=== PATIENT | female | born 1980 | race Caucasian/White ===

== ENCOUNTER 2017-09-05 15:35 | Observation (INO) | payer OTHER ==
--- NOTE | 2017-09-05 16:01 | HP ---
DATE OF ADMISSION: 09/05/2017. HISTORY OF PRESENT ILLNESS: Ms. Yasemin Brennan is a 37-year-old, white female who is 35 weeks pregna nt and is admitted with symptoms of right renal colic for cystoscopy, right ureteroscopy, laser litho tripsy, and right ureteral stent placement. Ms. Yasemin Brennan is a known stone former and in September of 2013 she was 22 weeks and she had left renal colic and required left ureteroscopy, stone extraction, and stent placement. She did well afterwards. She is now 35 weeks . She presented to my office about two months ago with episodes of gross painless hematuria associated with mild left flank pain. There was no associated voiding symptoms a nd no urinary tract infection. She had bilateral renal ultrasound which showed mild bilateral caliectasis with bilateral renal calcu li, but no acute obstruction. Because of the recurrent episodes of painless hematuria and to rule out any bladder pathology, she bernstein d a cystoscopy in the office two weeks ago. The bladder looked normal without any suspicious lesions . She continued to be managed conservatively until today when she presented to the office with symptoms of right renal colic. No associated fever or chills. Her urine analysis showed +3 blood, was negat neil otherwise. She had a bilateral renal ultrasound in the office. The study showed moderate right hydroureteral ne phrosis with increased echogenicity of the right renal cortex. There were three calculi noted in the right kidney measuring between 5 and 8 mm in size. The left kidney showed no hydronephrosis and the re were two calculi measuring 4 and 8 mm by ultrasound. The previous stone removed on the patient was calcium phosphate in composition. She has been maintain ed on potassium citrate. PAST MEDICAL HISTORY AND SYSTEM REVIEW: She is in very good health. PAST SURGICAL HISTORY: She had a section for her first baby in 2013. MEDICATIONS: She is on vitamins and on fish oil. She is on no other chronic medications. ALLERGIES: She reports POSSIBLE REACTION TO PENICILLIN. PHYSICAL EXAMINATION GENERAL: She is a pale-looking, white female who is and in moderate pain. VITAL SIGNS: Blood pressure 100/60, pulse 86, temperature 97. LUNGS: Exam of the lungs is normal. HEART: Exam of the heart is normal. ABDOMEN: She has right CVA tenderness. She has a gravid uterus. IMPRESSION: 1. Recurrent episodes of gross hematuria and right renal colic secondary to right ureteral calculus. 2. Bilateral renal calculi. 3. 35 weeks gestation. PLAN: Cystoscopy, right ureteroscopy, possible laser lithotripsy, and right ureteral stent placement . I discussed the above plans with the patient. All her questions were answered. [id number]/[facility] #: [id number]
[2017-09-05 16:12] LABS: Hematocrit 32 % (35-47); Hemoglobin 10.9 g/dl (12.0-16.0); Mean Corpuscular HGB Conc 34 g/dl (31-36); Mean Corpuscular Hemoglobin 31 pg (27-31); Mean Corpuscular Volume 90 fL (80-97); Mean Platelet Volume 7.8 um3 (7.4-10.4); Platelet Count 165 10^3/ul (150-450); Red Blood Count 3.54 10^6/ul (4.0-5.4); Red Cell Distribution Width 14 % (10.5-15); White Blood Count 16.3 10^3/ul (3.5-10.8)
[2017-09-05] MEDS ORDERED: Morphine INJ* 4 MG/ML 1 ML CARPUJECT IV ONE (16:27)
[2017-09-05 16:35] LABS: EGFR Non-African American 131.3 (>60); Urine Appearance Clear; Urine Blood 2+ (Negative); Urine Color Yellow; Urine Ketones 2+ (Negative); Urine Protein 1+(30 mg/dL) (Negative); Urine Specific Gravity 1.017 (1.010-1.030); Urine Urobilinogen Negative (Negative)
[2017-09-05 17:04] LABS: ABS Basophils 0.1 10^3/ul (0-0.2); ABS Eosinophils 0.1 10^3/ul (0-0.6); ABS Lymphocytes 1.6 10^3/ul (1.0-4.8); ABS Monocytes 0.8 10^3/ul (0-0.8); ABS Neutrophils 13.8 10^3/ul (1.5-7.7); ABS Nucleated RBC 0 10^3/ul; Eosinophil % 0.5 % (0-6); Lymphocyte % 9.6 % (25-47); Nucleated Red Blood Cells % 0
[2017-09-05] MEDS ORDERED: Midazolam* 1 MG/ML 2 ML VIAL (2 MG) ONE (18:21)
[2017-09-05] MEDS ORDERED: fentaNYL* 50 MCG/ML 2 ML VIAL (100 MCG VIAL) ONE (18:21)
[2017-09-05] MEDS ORDERED: cefTRIAXone(*) 1 GM ADVAN/BAG ONE (18:29)
[2017-09-05] MEDS ORDERED: Ondansetron SYRINGE* 4 MG/2 ML SYRINGE (from 40mg/20ml vial) ONE (18:45)
[2017-09-05] MEDS ORDERED: Iohexol 180 (CONTRAST) 10 ML SDV IV ONE (18:56)
[2017-09-05] MEDS ORDERED: Lidocaine 2% PF * 5 ML VIAL ONE (19:06)
[2017-09-05] MEDS ORDERED: DiMENhydriNATE IV* 50 MG/ML VIAL ONE (19:06)
[2017-09-05] MEDS ORDERED: Chloroprocaine 2%* 20 ML VIAL ONE (19:06)
[2017-09-05] MEDS ORDERED: Dexamethasone IV* 4 MG/ML 1 ML (4 MG) ONE (19:06)
[2017-09-05 20:19] VITALS: BP 112/58
--- NOTE | 2017-09-05 20:43 | RAD ---
INDICATION: Right-sided stent COMPARISON: None FINDINGS: 8 seconds of fluoroscopy were provided for the urology department. Fluoroscopic spot imaging of the abdomen were obtained for operative control and show right ureteral stent placement in the dilated right renal collecting system . CPT II Codes: G9500 (fluoro time doc)
--- NOTE | 2017-09-06 06:51 | PN ---
L&D Outpatient: Visit - Reproductive Information Estimated Due Date: 10/08/17 Gestational Age: 35 Weeks and 3 Days : 2 Para: 1 - Reason for Visit Visit Reason: admitted by urology for kidney stones and urologic procedure. - Antepartal Records Antepartal Record: Reviewed, Uncomplicated - Patient History Patient History Significant: Yes Patient History Significant For: kidney stones L&D Outpatient: ROS - Review of Systems Constitutional: Uncomfortable CV Complaint: No Respiratory: Shortness of Breath: No Genitourinary: Dysuria, No Leaking Fluid Musculoskeletal: Back Pain Movement: Normal L&D Outpatient: Exam Vitals - Most Recent: Vital Signs: Temp Pulse Resp BP Pulse Ox 98.6 F 79 16 112/58 97 09/05/17 20:15 09/05/17 20:15 09/05/17 20:57 09/05/17 20:15 09/05/17 20:15 Lab Values - Entire Visit: Laboratory Tests 09/05/17 09/05/17 09/05/17 15:55 15:55 15:55 WBC 16.3 H RBC 3.54 L Hgb 10.9 L Hct 32 L MCV 90 MCH 31 MCHC 34 RDW 14 Plt Count 165 MPV 7.8 Neut % (Auto) 84.4 H Lymph % (Auto) 9.6 L [place] % (Auto) 4.9 Eos % (Auto) 0.5 Baso % (Auto) 0.6 Absolute Neuts (auto) 13.8 H Absolute Lymphs (auto) 1.6 Absolute Monos (auto) 0.8 Absolute Eos (auto) 0.1 Absolute Basos (auto) 0.1 Absolute Nucleated RBC 0 Nucleated RBC % 0 Sodium 135 L Potassium 3.6 Chloride 104 Carbon Dioxide 21 L Anion Gap 10 BUN 7 Creatinine 0.53 Est GFR ( Amer) 168.8 Est GFR (Non-Af Amer) 131.3 BUN/Creatinine Ratio 13.2 Glucose 75 Calcium 8.4 L Urine Color Yellow Urine Appearance Clear Urine pH 6.0 Ur Specific [place] 1.017 Urine Protein 1+(30 mg/dl) A Urine Ketones 2+ A Urine Blood 2+ A Urine Nitrate Negative Urine Bilirubin Negative Urine Urobilinogen Negative Ur Leukocyte Esterase Negative Urine WBC (Auto) Trace(0-5/hpf) Urine RBC (Auto) 3+(>10/hpf) A Ur Squamous Epith Cells Present A Urine Bacteria Absent Urine Glucose Negative Urine Ascorbic Acid * A - Abdominal Exam Abdomen Exam: Non-Tender - Membranes Membrane Status: Intact L&D Outpatient: EFM - External Monitor Findings Baseline Heart Rate: 140 External Monitor Findings: Accelerations Present, No Pattern of Variable or Late Decelerations, Variability Moderate, Baseline Stable External Monitor Findings Comment: irregular contractions L&D Outpatient: Asses/Plan Assessment: @35wks admitted from urology for management of kidneys stones. No obstetrical issues. - Discharge Diagnosis Discharge Diagnosis: Other - kidney stones Plan: Discharge Home in Stable Condition
--- NOTE | 2017-09-08 03:47 | OP ---
CC: [facility] * DATE OF OPERATION: 09/05/17 - ROOM #109 DATE OF : 84 SURGEON: Chris Prado MD ANESTHESIOLOGIST: Nasrin Barbour MD ANESTHESIA: Spinal. PRE-OP DIAGNOSES: 1. Right renal colic. 2. Right ureteral calculus. 3. 35 weeks' gestation. POST-OP DIAGNOSES: 1. Right renal colic. 2. Right ureteral calculus. 3. 35 weeks' gestation. OPERATIVE PROCEDURE: 1. Cystoscopy. 2. Right ureteroscopy and laser lithotripsy of right ureteral calculus (8 mm). 3. Right retrograde pyelography and placement of right ureteral stent (6-Swazi ). INDICATIONS: Ms. Yasemin Brennan is a 37-year-old white female who is 35 weeks' and who is a known stone former, and who has been followed in the office for the last two months because of recurrent episodes of painless gross hematuria. Renal ultrasound showed non obstructing bilateral renal calculi and mild bilateral caliectasis. Urine cultures were negative. Cystoscopy showed no bladder lesions. The patient was managed conservatively. She presented to the office today with symptoms of right renal colic and office renal ultrasound showed moderate to severe right hydroureteronephrosis. Because of the above history and findings, the patient is admitted for the above procedure. PATHOLOGY AT CYSTOSCOPY: The bladder mucosa looked somewhat hyperemic with prominent submucosal veins, consistent with her stage of with extrinsic pressure of her gravid uterus. The ureteral orifices looked normal. Upon introduction of the guidewire into the right orifice, there was a gush of concentrated urine but it did not look purulent. When the ureteral catheter was introduced into the renal pelvis, a total of 50 cc of concentrated urine was drained from her right collecting system. Upon right ureteroscopy, an 8-mm calculus was noted in the distal ureter. The calculus had the gross appearance of a calcium phosphate stone. Retrograde pyelography showed moderate right hydronephrosis. DESCRIPTION OF PROCEDURE: After successful spinal anesthesia, an x-ray apron was placed under the patient to protect the fetus. Only the right kidney and proximal right ureter were visualized in the fluoroscopy field. The patient was then placed in the lithotomy position and was prepped and draped for cystoscopy. Cystoscopy was performed. The bladder was carefully inspected and the above findings were noted. A flexible tip guidewire was then introduced into the right orifice and there was some initial resistance and then a gush of concentrated urine from the right orifice. An open-ended catheter was then fed on top of the guidewire and positioned in the area of the renal pelvis. The kidney was then decompressed by aspirating 50 cc of concentrated urine from the kidney. The guidewire was then replaced and the open-ended catheter was removed. A size 6.5 semi-rigid ureteroscope was then introduced inside the bladder. A flexible-tip basket was then introduced through the port of the ureteroscope and its flexible tip was introduced into the right ureteral orifice alongside the guidewire. That allowed atraumatic introduction of the ureteroscope into the right ureter. The calculus was identified. The basket was then deployed and the stone was engaged preventing its proximal migration. A size 550 micron laser fiber was then introduced through the other port of the ureteroscope and the stone was then broken with laser into multiple fragments. The fragments were then extracted and sent for stone analysis. The ureteroscopy was then performed all the way up into the proximal ureter and no residual stone fragments or other calculi were seen. The cystoscope was then reintroduced over the guidewire. Retrograde pyelography was performed. A size 6-Swazi stent was placed with the proximal end coiling in the renal pelvis and the distal end coiling inside the bladder. There was good drainage of contrast from the kidney and no extravasation. The patient tolerated the procedure well and left the operating room in good condition. The plan is to keep the patient overnight in the Labor and Delivery for observation and for monitoring the fetus. The plan is to discharge her home tomorrow on suppressive course of Keflex. The stent will be removed in the office in about 10 days. [id number]/[facility] #: [id number] [facility]AMPUSDesi
--- NOTE | 2017-09-10 14:06 | DS ---
Admit dx: kidney stones, Discharge dx: kidney stones, Procedure: urologic procedure with Dr. Prado Hospital course: pt admitted for urologic procedure to remove painful kidney stones. She is 35wks . No complications with the . Discharge disposition: to home. Has f/u in our office for her . Will f/u with Dr. Prado for further care of her kidney issues.
== END 2017-09-06 08:45 | disposition home or self-care (01) ==
LOC: MCHOB 15:38
PROVIDERS: ADMIT Obstetrics & Gynecology; ATTEND Obstetrics & Gynecology
PROC: 0TC68ZZ Extirpation of Matter from Right Ureter, Via Natural or Artificial Opening Endoscopic (ICD-10-PCS; 2017-09-05)
PROC: BT1DZZZ Fluoroscopy of Right Kidney, Ureter and Bladder (ICD-10-PCS; 2017-09-05)
PROC: 0TF68ZZ Fragmentation in Right Ureter, Via Natural or Artificial Opening Endoscopic (ICD-10-PCS; principal; 2017-09-05 18:30)
DX: N13.2 Hydronephrosis with renal and ureteral calculous obstruction (principal); O26.893 Other specified pregnancy related conditions, third trimester; Z3A.35 35 weeks gestation of pregnancy; O09.523 Supervision of elderly multigravida, third trimester; Z87.442 Personal history of urinary calculi
CPT/HCPCS: 36415; 74420; 80048; 81003; 81015; 82365; 85025; 87086; 88300; C1876; G0378; J0696; J1100; J1240; J2250; J2270; J2400; J2405; J3010

== ENCOUNTER 2017-10-02 22:08 | Inpatient (IN) | payer OTHER ==
[2017-10-02] MEDS ORDERED: Morphine INJ* 2 MG/ML 1 ML CARPUJECT IV PRN (23:23)
[2017-10-02] MEDS ORDERED: Morphine INJ* 4 MG/ML 1 ML CARPUJECT IV ONE ×2 (23:33→23:57)
[2017-10-02 23:36] LABS: Hematocrit 30 % (35-47); Hemoglobin 10.2 g/dl (12.0-16.0); Mean Corpuscular HGB Conc 34 g/dl (31-36); Mean Corpuscular Hemoglobin 30 pg (27-31); Mean Corpuscular Volume 90 fL (80-97); Platelet Count 137 10^3/ul (150-450); Red Blood Count 3.39 10^6/ul (4.00-5.40); Red Cell Distribution Width 14 % (10.5-15); White Blood Count 18.5 10^3/ul (3.5-10.8)
--- NOTE | 2017-10-02 23:48 | PN ---
L&D Outpatient: Visit - Reproductive Information Estimated Due Date: 10/08/17 Gestational Age: 39 Weeks and 2 Days : 2 Para: 1 - Reason for Visit Visit Reason: Pt presents today with left side severe pain. She has a long h/o kidney stones including during this . She began having more pain this am and was seen by Dr. Prado today. She says she passed one stone today but still has another. She thought she could manage the pain this afternoon but then it got much worse a few hours ago so she came in. She has had a prior CS but strongly hopes for a . She has not had that much to drink today and had one episode of vomiting before arriving here. - Antepartal Records Antepartal Record: Reviewed, Complicated by: - kidney stones, prior CS - Patient History Patient History Significant: No L&D Outpatient: ROS - Review of Systems Constitutional: Uncomfortable CV Complaint: No Respiratory: Shortness of Breath: No Genitourinary: No Bleeding, No Leaking Fluid Musculoskeletal: Back Pain Movement: Normal L&D Outpatient: Exam Vitals - Most Recent: Vital Signs: Temp Pulse Resp BP Pulse Ox 20 10/02/17 23:37 Lab Values - Entire Visit: Laboratory Tests 10/02/17 23:00 WBC 18.5 H RBC 3.39 L Hgb 10.2 L Hct 30 L MCV 90 MCH 30 MCHC 34 RDW 14 Plt Count 137 L MPV 8.0 - Ultrasound/Biophysical Profile Ultrasound Status: Not Done L&D Outpatient: EFM - External Monitor Findings Baseline Heart Rate: 135 External Monitor Findings: Accelerations Present, No Pattern of Variable or Late Decelerations, Variability Moderate, Baseline Stable L&D Outpatient: Asses/Plan Assessment: @39.1wks with kidney stones. Desires . Spoke with Dr. Roe & he said if she doesn't plan on a CS now then they would consider nephrostomy tube vs another stent. They will see her in the am to discuss this. If she had a CS then they would plan for a stent at the same time as the CS. Will manage pain overnight, give IVF and Rocephin per Dr. Roe. - Discharge Diagnosis Discharge Diagnosis: Other - kidney stones
[2017-10-02 23:55] LABS: ABS Basophils 0.1 10^3/ul (0-0.2); ABS Eosinophils 0.1 10^3/ul (0-0.6); ABS Lymphocytes 1.4 10^3/ul (1.0-4.8); ABS Monocytes 1.2 10^3/ul (0-0.8); ABS Neutrophils 15.6 10^3/ul (1.5-7.7); ABS Nucleated RBC 0 10^3/ul
[2017-10-02 23:59] LABS: Monocytes % 5 % (0-7)
[2017-10-03] MEDS ORDERED: Morphine INJ* 4 MG/ML 1 ML CARPUJECT IV ONE (00:01)
[2017-10-03] MEDS ORDERED: Promethazine INJ(RESTRICTED)* 25 MG/ML 1 ML VIAL IV PRN ×2 (00:18→00:41)
[2017-10-03] MEDS ORDERED: Promethazine INJ(RESTRICTED)* 25 MG/ML 1 ML VIAL ONE (00:22)
[2017-10-03] MEDS ORDERED: cefTRIAXone(*) 2 GM in NS 0.9% 100 ML* 100 ML IVPB ONE (00:29)
[2017-10-03] MEDS ORDERED: Morphine INJ* 10 MG/ML 1 ML CARPUJECT IV ONE (00:41)
[2017-10-03] MEDS ORDERED: HYDROmorphone INJ* 2 MG/ML CARPUJECT SYRINGE IV ONE ×2 (01:22→04:30)
[2017-10-03] MEDS ORDERED: HYDROmorphone INJ* 2 MG/ML CARPUJECT SYRINGE ONE ×2 (01:34→09:32)
--- NOTE | 2017-10-03 09:03 | CONS ---
CC: [facility] * GENITOURINARY CONSULTATION NOTE DATE OF CONSULT: 10/03/17 Patient is on Labor and Delivery. Mrs. Albright is a 37-year-old white female whom I have been following for several years because bilateral renal calculus disease. In September 2013, while she was 22 weeks , she developed left renal colic and required left ureteroscopy and stone extraction with stent placement. She was doing well until one month ago when she was 35 weeks , and she presented with symptoms of right renal colic secondary to an 8 mm distal Rt ureteral calculus. She underwent a right ureteroscopy, laser lithotripsy, and right ureteral stent placement. The stent was removed ten days later and she did fine. The stone analysis was calcium phosphate. Renal ultrasound at that time showed bilateral non-obstructing renal calculi. Monika was doing well well until yesterday when she presented to my office with recurrent episodes of left renal colic. She spontaneously passed a 5 mm calculus. The pain improved, then recurred. She had a renal ultrasound in my office yesterday afternoon which showed bilateral non-obstructing renal calculi measuring up to 8 mm each. She also had moderate bilateral hydronephrosis, and there was a 1 cm calculus noted at the left uteropelvic junction. There was also increased cortical echogenicity of both kidneys. Bilateral renal calculi, measuring up to 8 mm were noted in each kidney. While in my office yesterday afternoon, patient felt better and she was sent home and asked to call back if her pain recurred. In my office, her urinalysis was positive for microscopic hematuria, but showed no infection. Patient had had no fever or chills. She presented to Labor and Delivery around midnight with nausea and vomiting, and bilateral flank more pronounced on the Left. She was admitted to Labor and Delivery, and started on IV fluid and pain medication, and was given a dose of Ceftriaxone IV. Patient is 40 weeks and had a previous section. She had wanted to go for a , and she has been scheduled to have a in another week unless she goes into labor. PHYSICAL EXAMINATION On physical exam today, she looks pale and she is in a significant amount of pain and retching and vomiting. She is afebrile, and her vital signs are normal. She had bilateral flank tenderness more so on the left. IMPRESSION: A 1 cm calculus at the left ureteropelvic junction with recurrent episodes of left renal colic in a 37-year-old who is 40 weeks , had a previous , and scheduled to go for a in another week unless she goes into labor. Bilateral renal calculi Renal ultrasound was obtained this morning. It showed bilateral moderate to severe hydronephrosis, bilateral renal calculi, and a 1.2 cm calculus at the Left UPJ. I discussed Monika's condition with Dr Deal who is automotive fuel systems converter for OB. I had a long discussion with Monkia and her regarding the options of management. I recommended that we proceed today with the , followed by bilateral stents placement, possible bilateral ureteroscopies and laser lithotripsy. The other options include placing stents only versus placing a left percutaneous nephrostomy. She might still go into labor following the procedures, and she might well require a section. Considering the above factors, and after Monika discussed the options with her , she decided to proceed with the section today, follwed by bilateral stents insertions, and possible bilateral ureteroscopies. All their questions were answered. [id number]/[facility] #: [id number] [place]
--- NOTE | 2017-10-03 09:10 | HP ---
General Information - General Information Maternal Age: 37 Grav: 2 Para: 1 SAB: 0 IEA: 0 Estimated Due Date: 10/08/17 Determined By: LMP Gestational Age in Weeks and Days: 39 Weeks and 1 Days Maternal Blood Type and Rh: AB Positive - Results this Serology/RPR Result: Non-Reactive Rubella Result: Immune HBsAg Result: Negative HIV Result: Negative GBS Culture Result: Negative Past Medical History Delivery History: Hx C/Section, See Records Pertinent Past Medical History: See Records Pertinent Past Surgical History: See Records Pertinent Family History: See Records - Antepartal Records Antepartal Records: Reviewed, Complicated by: - Renal stones and pain Review of Systems Constitutional: Uncomfortable CV Complaint: No Respiratory: Shortness of Breath: No Gastrointestinal: Normal Bowel Movement Genitourinary: No Dysuria, No Bleeding, No Leaking Fluid Musculoskeletal: No Complaint Neurological: No Headache Movement: Normal - Comments Patient admitted with bilateral back pain localized to costovertebral angle and abdominal pain suprapubic and llq. Exam Allergies/Adverse Reactions: Allergies Penicillins Allergy (Verified 09/05/17 16:40) Unknown Reaction Details Vital Signs 10/02/17 10/03/17 10/03/17 23:37 00:05 04:05 Respiratory 20 18 16 Rate 10/03/17 06:11 Respiratory 16 Rate Lab Values - Entire Visit: Laboratory Tests 10/02/17 10/02/17 23:00 23:00 WBC 18.5 H RBC 3.39 L Hgb 10.2 L Hct 30 L MCV 90 MCH 30 MCHC 34 RDW 14 Plt Count 137 L MPV 8.0 Neut % (Auto) Not Reportable Lymph % (Auto) Not Reportable [place] % (Auto) Not Reportable Eos % (Auto) Not Reportable Baso % (Auto) Not Reportable Absolute Neuts (auto) 15.6 H Absolute Lymphs (auto) 1.4 Absolute Monos (auto) 1.2 H Absolute Eos (auto) 0.1 Absolute Basos (auto) 0.1 Absolute Nucleated RBC 0 Immature Gran % 17 H Neutrophils % 73 Band Neutrophils % 14 H Lymphocytes % 4 L Monocytes % 5 Eosinophils % 1 Basophils % 0 Metamyelocytes % 1 Myelocytes % 2 H Nucleated RBC % Not Reportable Abs Neuts (Manual) 13.5 H Abs Lymphs (Manual) 0.7 L Abs Monocytes (Manual) 0.9 H Absolute Eos (Manual) 0.2 Abs Basophils (Manual) 0 Normal RBC Morphology Normal Blood Type AB Positive Antibody Screen Negative - Measurements Height: 5 ft 4 in Weight: 171 lb Weight in lbs: 171 Body Mass Index (BMI): 29.3 Pre- Weight: 136 lb Weight Gained This : 35 lbs and 0 ozs - Exam Abdomen: No Upper Quadrant Pain Breast: Breast Exam Deferred CVA: CVA Tenderness - bilaterally Extremities: No Edema Heart: Normal Rhythm/Heart Sounds HEENT: No Significant Findings Lungs: Clear Bilaterally Rectal: Rectal Exam Deferred Reflexes: DTR 2+ Thyroid: No Thyromegaly - Abdominal Exam Abdomen Exam: Fundal Height Consistent with Dates - Ultrasound/Biophysical Profile Ultrasound Status: Radiology Department Full Exam - Full renal scan Targeted Exam Findings See L&D Outpatient Visit Provider Note for Findings: N/A Cervical Exam: Closed Effacement: Thick Station: 0 Presenting Part: Vertex Membrane Status: Intact Bleeding/Discharge: None EFM Findings - External Monitor Findings Baseline Heart Rate: 149 External Monitor Findings: Accelerations Present Contractions: Irregular, Mild Assessment/Plan - Reason for Visit Reason for Visit: at 39 weeks, prior section, acute back/abdominal pain secindary to renal stones not amenable to conservative treatment. Urology consulted. - Obstetrical Risk Factors Risk Factors Comment: Priro Section - Plan Plan Comment: Plan Ureteral stent placement followed by repeat Section.
[2017-10-03] MEDS ORDERED: HYDROmorphone INJ* 0.5 MG/0.5 ML SYRINGE IV SLOW PU PRN (09:27)
--- NOTE | 2017-10-03 09:40 | RAD ---
HISTORY: Renal stones, pt to have stent vs nephrostomy tube COMPARISONS: Pyelogram dated September 05, 2017, ultrasound dated October 17, 2010 TECHNIQUE: Multiple transverse and longitudinal ultrasound images were obtained of the kidneys using grayscale and color Doppler imaging. FINDINGS: RIGHT KIDNEY: The right kidney is normal in shape, size, contour, and echogenicity. There is moderate to severe pelvocaliectasis. The right kidney measures 13.1 x 7.6 x 7.6 cm. LEFT KIDNEY: The left kidney is normal in shape, size, contour, and echogenicity. There is moderate to severe pelvocaliectasis. There is a 1.3 x 0.8 cm UPJ calculus. The left kidney measures 14.3 x 7.4 x 6.7 cm. BLADDER: The bladder is not well visualized. AORTA AND IVC: No images are submitted of the vasculature. RETROPERITONEUM: Unremarkable. OTHER: None. IMPRESSION: 1. MODERATE TO SEVERE BILATERAL HYDRONEPHROSIS. 2. 1.3 CM CALCULUS OF THE LEFT UPJ.
[2017-10-03] MEDS ORDERED: HYDROmorphone INJ* 1 MG/ML CARPUJECT SYRINGE IV SLOW PU PRN (09:48)
[2017-10-03 10:24] LABS: EGFR Non-African American 31.2 (>60)
[2017-10-03] MEDS ORDERED: ceFOXitin 2 GM IVPREMIX* 2 GM/50 ML BAG IVPB ONE (10:48)
[2017-10-03] MEDS ORDERED: Iohexol 180 (CONTRAST) 10 ML SDV IV ONE (11:13)
[2017-10-03] MEDS ORDERED: Sodium Citrate/Citric Acid* 15 ML UDC ONE ×2 (12:11→12:44)
[2017-10-03] MEDS ORDERED: Morphine PF AMP (0.5MG/ML)* 5 MG/10 ML AMP ONE (12:20)
[2017-10-03] MEDS ORDERED: Bupivacaine 0.25% SDV* 30 ML ONE (13:03)
[2017-10-03] MEDS ORDERED: Bupivacaine 0.5% SDV PF* 30ML VIAL ONE (13:03)
[2017-10-03] MEDS ORDERED: OXYTOCIN* 10 UNITS/ML 1 ML VIAL ONE ×2 (13:04→13:36)
[2017-10-03] MEDS ORDERED: fentaNYL* 50 MCG/ML 2 ML VIAL (100 MCG VIAL) ONE ×2 (13:19→14:10)
[2017-10-03] MEDS ORDERED: KETAMINE HCL* 50 MG/ML 10 ML VIAL ONE (13:21)
[2017-10-03] MEDS ORDERED: Bupivacaine-MPF SPINAL* 7.5 MG/2 ML AMP ONE (13:36)
[2017-10-03] MEDS ORDERED: Ondansetron ODT TAB* 4 MG ONE (13:36)
[2017-10-03] MEDS ORDERED: oxyCODONE TAB* 5 MG TAB PO PRN (14:11)
[2017-10-03] MEDS ORDERED: Acetaminophen TAB* 325 MG PO PRN ×2 (14:11→21:35)
[2017-10-03] MEDS ORDERED: fentaNYL* 50 MCG/ML 2 ML VIAL (100 MCG VIAL) IV PRN (14:11)
[2017-10-03] MEDS ORDERED: Naloxone* 0.4 MG/ML 1 ML VIAL IV PRN ×2 (14:11→14:12)
[2017-10-03] MEDS ORDERED: HYDROmorphone INJ* 1 MG/ML CARPUJECT SYRINGE IV PRN (14:11)
[2017-10-03] MEDS ORDERED: Nalbuphine* 20 MG/ML 1 ML VIAL IV PRN ×3 (14:11→14:12)
[2017-10-03] MEDS ORDERED: oxyCODONE/Acetamin 5/325 MG* TAB PO PRN (14:12)
[2017-10-03] MEDS ORDERED: Ondansetron INJ* 2 MG/ML VIAL IV PRN (14:12)
--- NOTE | 2017-10-03 15:30 | PROCNOTE ---
[facility] OB: Delivery Note - Delivery A Date of : 10/03/17 Time of : 13:09 [place] Sex: Male Weight at : 8 lb 12 oz Score 1 Minute: 9 Score 5 Minutes: 9 Gestational Age in Weeks and Days at Delivery: 39 Weeks and 2 Days Delivery Method: Repeat Section Labor: Not in Labor Details: Unscheduled/Non-Emergent Reason for Section: repeat and kidney stones/stent placement Did Patient attempt ?: No, Did not attempt Amniotic Fluid: Clear Estimated Blood Loss: 700 Anesthesia/Analgesia: Spinal for Delivered By: Naresh Deal - Nursery Level of Nursery: Regular/Bedside - Perineum Perineal Injury: None/Intact - Events Delivery Events of Note: None Apply Delivery Events of Note Comment: stent by Dr. Self in OR
--- NOTE | 2017-10-03 15:49 | RAD ---
INDICATION: Bilateral hydronephrosis COMPARISON: None FINDINGS: 21 seconds of fluoroscopy were provided for the urology department. Fluoroscopic spot imaging of the abdomen were obtained bilateral ureteral stent placement. CPT II Codes: G9500 (fluoro time doc)
[2017-10-03] MEDS ORDERED: Dibucaine 1% 28.35 GM TUBE PR PRN (21:35)
[2017-10-03] MEDS ORDERED: Witch Hazel PAD* JAR TOPICAL PRN (21:35)
[2017-10-03] MEDS ORDERED: Glycerin ADULT SUPP PR PRN (21:35)
[2017-10-04] MEDS: Ibuprofen TAB* 600 MG PO PRN ×4 (03:00→21:31)
[2017-10-04] MEDS ORDERED: oxyCODONE/Acetamin 5/325 MG* TAB PO PRN (04:39)
--- NOTE | 2017-10-04 05:54 | OP ---
CC: [facility] OPERATIVE REPORT: DATE OF OPERATION: 10/03/17 DATE OF : 84 SURGEON: Naresh Deal MD SHEET METAL INSTALLER: Mervat Ballesteros, certified nurse practitioner. ANESTHESIA: Spinal. PRE-OP DIAGNOSES: Intrauterine at 39 weeks, prior section and abdominal pain and back pain secondary to renal stone. POST-OP DIAGNOSES: Intrauterine at 39 weeks, prior section and abdominal pain and back pain secondary to renal stone. OPERATIVE PROCEDURE: Repeat low transverse section. ESTIMATED BLOOD LOSS: 700 cc. FLUIDS: She received 1300 cc of IV crystalloid fluid. URINE OUTPUT: Clear. FINDINGS: Delivery of a viable male with clear fluid, weighing 8 pounds 12 ounces with Apgars of 9 and 9. The placenta was grossly intact with 3-vessel cord noted. The uterus, adnexa, bowel an d bladder were within normal limits and there were no complications. DESCRIPTION OF PROCEDURE: The patient was taken to the operating room where she was identified. She was placed on the operating table where a spinal anesthetic was obtained without difficulty. She wa s then placed in the supine position with a leftward tilt, prepped and draped in normal sterile fashi on. A Pfannenstiel skin incision was then made with a knife and carried through to the underlying la chetna of fascia. The fascia was nicked in the midline and extended laterally with curved Cool scissors . The fascia was then grasped superiorly and inferiorly with Suzie clamps and dissected off sharply from the rectus muscle. The rectus muscle was then in the midline bluntly. The peritoneu m was identified, grasped with pick-ups and entered sharply with Metzenbaum scissors and extended sup eriorly and inferiorly bluntly. The bladder blade was returned to the patient's abdomen and bladder flap was then created using Metzenbaum scissors, over which the bladder blade was then reinserted. A low transverse uterine incision was made with a knife and extended it laterally with bandage scissor s. The amniotic sac was ruptured. The fluid was noted to be clear. The 's head was then grasp ed and delivered atraumatically. The rest of the infant's body was then delivered. The cord was cla mped and cut. The was handed off to awaiting drip box tender. Cord bloods were obtained. The p lacenta was removed manually. The uterus was then exteriorized, cleared of all clot and debris using moist laparotomy sponges. The uterine incision was then closed using 0 Polysorb suture in a running locked fashion with second imbricating layer of 0 Polysorb suture with good hemostasis noted at the incision site. At this point, the uterus was returned to the patient's abdomen, the gutters were the n cleared of all clot and debris using moist laparotomy sponges. All the sponges were removed from t he patient's abdomen. The peritoneum was then closed using 3-0 Polysorb suture in a running fashion. The fascia was closed using 0 Polysorb suture in a running fashion and the skin was was closed with 4-0 Monocryl subcuticular stitch. The patient tolerated the procedure well. Sponge, lap and needle counts were correct x2. She was then remained in the operating room where Dr. Prado from Urology was to perform an ureteral stent placement. Please note Dr. Prado's report for this. [id number]/[facility] #: [id number]
[2017-10-04 06:39] LABS: Hematocrit 23 % (35-47); Hemoglobin 7.8 g/dl (12.0-16.0); Mean Corpuscular HGB Conc 35 g/dl (31-36); Mean Corpuscular Hemoglobin 31 pg (27-31); Mean Corpuscular Volume 89 fL (80-97); Mean Platelet Volume 8.2 um3 (7.4-10.4); Platelet Count 143 10^3/ul (150-450); Red Blood Count 2.55 10^6/ul (4.00-5.40); Red Cell Distribution Width 14 % (10.5-15); White Blood Count 15.7 10^3/ul (3.5-10.8)
[2017-10-04 07:33] LABS: ABS Basophils 0 10^3/ul (0-0.2); ABS Eosinophils 0.1 10^3/ul (0-0.6); ABS Lymphocytes 1.5 10^3/ul (1.0-4.8); ABS Monocytes 1.1 10^3/ul (0-0.8); ABS Nucleated RBC 0 10^3/ul; Eosinophil % 0.8 % (0-6); Lymphocyte % 9.3 % (25-47); Nucleated Red Blood Cells % 0
[2017-10-04] MEDS: Simethicone TAB* 80 MG TAB.CHEW PO SCH ×4 (08:50→21:31)
[2017-10-04] MEDS: Docusate CAP* 100 MG PO SCH ×3 (08:50→21:31)
[2017-10-04] MEDS ORDERED: Ferrous Gluconate TAB* 324 MG TAB PO SCH (09:00)
[2017-10-04] MEDS: oxyCODONE/Acetamin 5/325 MG* TAB PO PRN ×3 (10:33→21:31)
[2017-10-04] MEDS ORDERED: Zolpidem TAB* 5 MG PO PRN (21:00)
[2017-10-05] MEDS: Ibuprofen TAB* 600 MG PO PRN ×2 (03:43→09:43)
--- NOTE | 2017-10-05 04:11 | OP ---
DATE OF OPERATION: 10/03/17 - ROOM #104 DATE OF : 84 SURGEON: Chris Prado MD ANESTHESIOLOGIST: Dr. Foster. ANESTHESIA: Spinal. PRE-OP DIAGNOSES: 1. Bilateral hydronephrosis. 2. Bilateral renal calculi. 3. Left ureteropelvic junction calculus. 4. Decreased renal function. 5. 40 weeks' gestation. POST-OP DIAGNOSES: 1. Distal right ureteral calculus (1 cm). 2. Left ureteropelvic junction calculus (1.2 cm). 3. Bilateral ureteral obstruction due to above. INDICATIONS FOR PROCEDURE: Mrs. Yasemin Brennan is a 37-year-old white female who is a known stone former and one month ago required a right ureteroscopy and laser lithotripsy for an obstructing distal right ureteral calculus. The procedure done when she was 36 weeks' . She is known to have bilateral renal calculi. The patient was admitted with bilateral flank pain and bilateral moderate-to- severe hydronephrosis by renal ultrasound. She was afebrile. Her serum creatinine went up to 1.8. Because the patient is 40 weeks' , and although she was considering , with the above findings, the obstruction, decreased renal function, and after discussing with the OB service, decision was made to proceed with today followed by bilateral ureteroscopies and stents placement. The patient underwent a first and the urological procedure followed under the same anesthesia. Pathology: At cystoscopy, the bladder mucosa looked normal. There were no suspicious bladder lesions seen. Upon right ureteroscopy, there was a 1 cm calculus located about 3 cm above the ureterovesical junction. The calculus had the gross appearance of a calcium phosphate stone. It was relatively easy to fragment with the laser. Right retrograde pyelography showed [id number] right hydronephrosis. Upon left ureteroscopy, no calculus was encountered in the ureter. There was significant degree of edema, and hyperemia of the ureteral mucosa at the UPJ level where the calculus was noted on the ultrasound studies, and must have migrated into the renal pelvis when the guide wire placed. The calculus was visualized in the posterior aspect of the renal pelvis. The left retrograde pyelography showed [id number] left hydronephrosis. DESCRIPTION OF PROCEDURE: Under spinal anesthesia and after the was completed, the patient was placed in the lithotomy position and was prepped and draped for cystoscopy. Cystoscopy was performed. The bladder was inspected and above findings were noted. A flexible-tip hybrid guidewire was then introduced into the right ureteral orifice. There was initial resistance to the introduction of the guidewire at the level of the distal ureter, but then successfully introduced into the renal pelvis under fluoroscopy guidance. A 6.5 semi-rigid ureteroscope was then introduced inside the bladder. A flexible- tip basket was introduced through the port of the ureteroscope and the flexible-tip of the basket was then introduced into the right ureter alongside the guidewire. That allowed an atraumatic introduction of the ureteroscope inside the ureter. The calculus was identified. The basket was deployed proximal to the stone to avoid its proximal migration. A 550 micron laser fiber was then introduced through the other port of the ureteroscope and the stone was fragmented in multiple pieces. The fragments were then extracted using the basket. During the procedure, the ureteral wall looked intact and there was no evidence of any injury. Left retrograde pyelography was then performed. The ureter was significantly dilated and there was marked hydronephrosis. A size 6-[place] stent was then placed with the proximal end coiling in the renal pelvis and the distal end coiling inside the bladder. There was good drainage of contrast and no extravasation noted. Attention was then directed to the left ureter. A flexible tip guidewire was then introduced into the left ureter and positioned in the area of the renal pelvis under ultrasound guidance. A size 6.5 semi-rigid ureteroscope was then introduced inside the bladder. A flexible-tip basket was introduced into the port of the ureteroscope and the flexible-tip of the basket was introduced into the left ureter alongside the guidewire. The ureter was significantly dilated considering her stage of , and it was easy to introduce the ureteroscope all the way into the proximal ureter. No calculi were noted. At the ureteropelvic junction, there was noted the edema and hyperemia in the mucosa from the stone that must have migrated up into the renal pelvis at the time of the placement of the guidewire. The ureteroscope was introduced without difficulty inside the renal pelvis. The renal pelvis was decompressed. The calculus was noted to be in the posterior aspect of the renal pelvis. It was felt that it will not be easily reachable for fragmentation and decision was made to proceed with a stent placement. The ureteroscope was then removed, keeping the guidewire in place. Retrograde pyelography was then performed demonstrating dilated collecting system. A size 7- [place] stent was then placed with the proximal end coiling in the renal pelvis and the distal end coiling inside the bladder. There was good drainage of contrast from the kidney and no extravasation. A size 16-[place] Sullivan catheter was then placed inside the bladder. The patient tolerated the procedure well and left the operating room in good condition. The plan is to bring the patient back at a later date for a definitive treatment of the left renal calculus. [id number]/[facility] #: [id number] MTDD
[2017-10-05 08:28] LABS: Hematocrit 23 % (35-47); Hemoglobin 7.9 g/dl (12.0-16.0)
[2017-10-05] MEDS: Docusate CAP* 100 MG PO SCH (08:36)
[2017-10-05] MEDS: Simethicone TAB* 80 MG TAB.CHEW PO SCH (08:37)
[2017-10-05 08:45] LABS: EGFR Non-African American 118.3 (>60)
[2017-10-05 08:47] VITALS: BP 120/60
[2017-10-05] MEDS: oxyCODONE/Acetamin 5/325 MG* TAB PO PRN (11:20)
== END 2017-10-05 14:54 | disposition home or self-care (01) | DRG 765 ==
LOC: MCHOBOUT 22:08 → MCHOB 10-03 08:21 → UNDODISIN 10-05 08:25
PROVIDERS: ADMIT Obstetrics & Gynecology; ATTEND Obstetrics & Gynecology
PROC: BT1FYZZ Fluoroscopy of Left Kidney, Ureter and Bladder using Other Contrast (ICD-10-PCS; 2017-10-03)
PROC: 0T788DZ Dilation of Bilateral Ureters with Intraluminal Device, Via Natural or Artificial Opening Endoscopic (ICD-10-PCS; 2017-10-03)
PROC: 10D00Z1 Extraction of Products of Conception, Low, Open Approach (ICD-10-PCS; principal; 2017-10-03 12:00)
PROC: 0TC68ZZ Extirpation of Matter from Right Ureter, Via Natural or Artificial Opening Endoscopic (ICD-10-PCS; 2017-10-03 12:00)
DX: O34.211 Maternal care for low transverse scar from previous cesarean delivery (principal); N13.2 Hydronephrosis with renal and ureteral calculous obstruction; O99.89 Other specified diseases and conditions complicating pregnancy, childbirth and the puerperium; O90.81 Anemia of the puerperium; D64.9 Anemia, unspecified; Z3A.39 39 weeks gestation of pregnancy; Z37.0 Single live birth
CPT/HCPCS: 36415; 74420; 76775; 80048; 80053; 82365; 85014; 85018; 85025; 86850; 86900; 86901; 88300; A9270-GY; C1876; J0694; J0696; J1170; J2270; J2550; J2590; J3010

== ENCOUNTER → 2017-10-29 07:39 | Day surgery (SDC) | payer OTHER ==
--- NOTE | 2017-10-28 14:36 | HP ---
HISTORY AND PHYSICAL: DATE OF PLANNED ADMISSION AND SURGERY: 10/29/17 HISTORY OF PRESENT ILLNESS: Ms. Yasemin Brennan is a 37-year-old white female who is admitted with a left renal calculus, status post placement of left ureteral stent, for cystoscopy, left ureteroscopy, possible laser lithotripsy, and left ureteral stent exchange. Ms. Brennan is a known stone former, who had formed renal calculi during her pregnancies. In September 2013, she required a left ureteroscopy and stone extraction when she was 22 weeks . Stone analysis showed calcium phosphate. In August 2017, when she was 35 weeks , , she presented with right renal colic. Renal ultrasound showed Rt hydronephrosis, and bilateral non obstructing renal calculi. She underwent urgent right ureteroscopy and laser litho of a distal Rt ureteral calculus and Rt stent placement. She did very well until one month later when she was 40 weeks , and she presented with bilateral flank pain, more so on the left side, and bilateral hydronephrosis by ultrasound. A 1 cm calculus was noted at the Lt UPJ. Her serum creatinine was up to 1.8. She was taken urgently to the operating room where she underwent a section followed by right ureteroscopy and laser lithotripsy of a 1-cm distal right ureteral calculus and placement of right ureteral stent. She also had left ureteroscopy, which showed an impacted calculus at the ureteropelvic junction. The calculus was disimpacted and there was significant degree of edema and hyperemia and what looked like abraded mucosa and thinned out ureteral wall of the proximal ureter at the level of the UPJ where the stone was impacted. The stone was pushed into the renal pelvis, and a Left ureteral stent placed. The patient did very well postoperatively and her serum creatinine went down to normal. The right ureteral stent was removed in the office on 10/13/17. It was decided to keep the left ureteral stent longer to allow the healing of the UPJ area. The patient now is brought in for left ureteroscopy, possible laser lithotripsy if the stone is accessible, and left ureteral stent exchange. PAST MEDICAL HISTORY AND SYSTEM REVIEW: She is in very good health. She was anemic following her , but has been maintained on iron. She is nursing. MEDICATIONS: She is on no other chronic medications. ALLERGIES: She reports having a possible allergy to PENICILLIN; however, she tolerated cephalosporins without any reaction. PHYSICAL EXAMINATION GENERAL: She is a pleasant, healthy, a little bit pale white female. VITAL SIGNS: Blood pressure 105/70, pulse of 74. LUNGS: Clear HEART: Regular and rhythmic. No murmurs. ABDOMEN: well-healed incision and no CVA tenderness. IMPRESSION: Left renal/ proximal ureteral calculus, status post placement left ureteral stent. PLAN: Plan is for cystoscopy, left retrograde pyelography, ureteroscopy, and possible laser lithotripsy, and left ureteral stent exchange. If the calculus cannot be treated, the patient will then be scheduled for shock wave lithotripsy. I discussed the above plans with the patient and her , and all their questions answered. [id number]/[facility] #: [id number] [place]
[~2017-10-29 07:39] MED LIST: Acetaminophen TAB* 325 MG PO PRN; Buffered Lidocaine 0.9% SYRIN* 5 ML/SYR SYRINGE INTRADERM ONE; Chloroprocaine 2%* 20 ML VIAL ONE; DiMENhydriNATE IV* 50 MG/ML VIAL IV PUSH PRN; Famotidine IV* 10 MG/ML 2 ML (20 mg) ONE; HYDROcodone/ACETAMIN 5-325 MG* 1 TAB PO PRN; Iohexol 180 (CONTRAST) 10 ML SDV IV ONE; Naloxone* 0.4 MG/ML 1 ML VIAL IV PRN; Ondansetron INJ* 2 MG/ML VIAL IV PRN; Ondansetron ODT TAB* 4 MG PO PRN; PROCHLORPERAZINE INJ 5 MG/ML 2 ML VIAL IV PRN; cefTRIAXone(*) 1 GM ADVAN/BAG ONE; fentaNYL* 50 MCG/ML 2 ML VIAL (100 MCG VIAL) IV PRN; fentaNYL* 50 MCG/ML 2 ML VIAL (100 MCG VIAL) ONE
--- NOTE | 2017-10-29 11:22 | RAD ---
CPT II Codes: G9500 INDICATION: Cystoscopy left left ureteroscopy. Fluoroscopic services provided for referring physician. 22 seconds of fluoroscopy time was used. 6 spot images demonstrates placement of a left ureteral stent. Fullness of the left renal collecting system is noted with a stone at the left ureteropelvic junction. IMPRESSION: Placement of a left ureteral stent with calculus at the left ureteropelvic junction.
[2017-10-29 12:11] VITALS: BP 112/71
--- NOTE | 2017-10-29 13:09 | RAD ---
INDICATION: Left stent insertion COMPARISON: June 10, 2016 TECHNIQUE: A single view of the abdomen is submitted. FINDINGS: Bones: There are no acute bony findings. Soft tissues: The soft tissues appear normal. The psoas margins are sharp. There is interval placement of a left ureteral stent. Bowel gas pattern: Normal Calcifications: There is left-sided nephrolithiasis. Other: None IMPRESSION: LEFT URETERAL STENT. LEFT-SIDED NEPHROLITHIASIS.
--- NOTE | 2017-10-29 22:16 | OP ---
CC: Shannan Adan MD; [facility] * DATE OF OPERATION: 10/29/17 - [facility] DATE OF : 84 SURGEON: Chris Prado MD ANESTHESIOLOGIST: Joss Kelly MD ANESTHESIA: Spinal. PRE-OP DIAGNOSES: 1. Left renal calculus. 2. Status post placement left ureteral stent. POST-OP DIAGNOSES: 1. Left renal calculus. 2. Status post placement left ureteral stent. OPERATIVE PROCEDURE: 1. Cystoscopy. 2. Left retrograde pyelography. 3. Left ureteroscopy and pyeloscopy. 4. Laser lithotripsy of left renal calculus (1.2 cm). 5. Placement of left ureteral stent (7-Citizen [place]). INDICATION FOR PROCEDURE: Ms. Yasemin Brennan is a 37-year-old white female who 1 month ago when she was 40 weeks , presented with bilateral hydronephrosis and obstruction by bilateral calculi and an elevated serum creatinine of 1.8. She underwent urgent section followed under the same anesthetic by right ureteroscopy, laser lithotripsy and right ureteral stent placement and by left ureteroscopy and placement of left ureteral stent. There was a 1.2 cm calculus at the left UPJ and there was significant degree of edema and abrasion of the mucosa of the ureter at that level. A stent was placed. The stent was kept in place until now to allow the healing of the ureteral mucosa. The patient now admitted for the treatment of the left renal calculus. PATHOLOGY: At cystoscopy, the bladder mucosa looked normal. The distal limb of the stent was seen coming from the left ureteral orifice. The left ureter was nicely dilated from the presence of the stent. Upon left retrograde pyelography, there was a normal looking ureteropelvic junction without any evidence of stricture. Mild left hydronephrosis was noted. A 1.2 cm radiopaque calculus was noted on fluoroscopy in the lower pole calyx of the left kidney. Upon left ureteroscopy, the whole ureteral mucosa including the mucosa in the proximal ureter and the ureteropelvic junction looked normal without evidence of any strictures. At flexible ureteroscopy, a 1.2 cm calculus was noted in the lower pole calyx. There were too smaller calculi measuring about 5 mm each. The calculi had the appearance of calcium phosphate stones. DESCRIPTION OF PROCEDURE: After successful spinal anesthesia, the patient was placed in the lithotomy position and was prepped and draped for a cystoscopy. Cystoscopy was performed. The bladder was inspected. The distal limb of the left ureteral stent was pulled out to the level of the urethral meatus. A flexible tip guidewire was then introduced into the lumen of the stent and positioned in the area of the renal pelvis. A 5-Citizen [place] open ended catheter was then fed over the guidewire and positioned in the mid ureter. Retrograde pyelography was performed demonstrating the proximal ureter, the ureteropelvic junction and the renal pelvis. A normal caliber of the ureter was noted all through without any strictures. A size 6.5 semirigid ureteroscope was then introduced in the left ureter keeping the guidewire in place. The whole ureteral wall was inspected and the mucosa looked normal all the way inside the renal pelvis. Inspection of the renal pelvis did not show any calculi. The semirigid ureteroscope was removed and a 12/14 ureteral access sheath was then fed above the guidewire and positioned in the proximal left ureter. A flexible ureteroscope was then introduced inside the access sheath and the lower pole calices were inspected and the calculi were noted. Using a tipless basket, the calculus was engaged and was pulled out into the renal pelvis. The stone was disengaged from the basket and the basket was removed. A 250 micron laser fiber was then introduced through the ureteroscope and the stone was broken into multiple fragments. The fragments did not exceed 2 to 3 mm in size. They were too small to extract and it was decided to leave them as the patient should be able to pass them spontaneously once the stent is removed. The ureteroscope was then removed. The guidewire was introduced through the sheath and the access sheath was removed. Retrograde pyelography was performed showing a normal collecting system and ureter and no extravasation. A size 7- Citizen [place] stent was then placed with the proximal end coiling in the renal pelvis and the distal end coiling inside the bladder. There was good drainage of contrast from the left kidney. The patient tolerated the procedure well and left the operating room in good condition. The plan is to leave the stent in place for about 10 days. It will be removed in the office under local anesthesia and I expect the stone fragments to pass spontaneously. [id number]/[facility] #: [id number] [facility]ALTH[facility]
== END | disposition home or self-care (01) ==
LOC: OR 07:39
PROVIDERS: ATTEND Urology
DX: N13.2 Hydronephrosis with renal and ureteral calculous obstruction (principal); Z87.442 Personal history of urinary calculi; G43.909 Migraine, unspecified, not intractable, without status migrainosus
CPT/HCPCS: 74018; 74420; 81025; C1876; J0696; J2400; J3010

== ENCOUNTER → 2017-11-17 06:28 | Day surgery (SDC) | payer OTHER ==
--- NOTE | 2017-11-10 12:44 | HP ---
CC: Dr. Adan * HISTORY AND PHYSICAL: DATE OF PLANNED ADMISSION AND SURGERY: 11/17/17 Please refer to my detailed history and physical for her admission dated HISTORY OF PRESENT ILLNESS: Ms. Albright is a 37-year-old white female who is admitted with left renal calculi, status post placement left ureteral stent, for shock-wave lithotripsy of left renal calculi followed by cystoscopy and removal of left ureteral stent. The patient had recurrent bilateral renal calculi and had required bilateral ureteroscopies, laser lithotripsies. She underwent a left ureteroscopy and pyeloscopy with laser litho of a 1 cm left renal calculus on 10/29/17. Postoperative KUB showed residual calculi in the mid and the lower pole calyces. The stent was in good position. The patient now is admitted for Lt shock-wave lithotripsy and left stent removal. PAST MEDICAL HISTORY AND SYSTEM REVIEW: Unchanged. She is in excellent health. MEDICATIONS: She is on iron and vitamins. She is in on no other chronic medications. ALLERGIES: There is questionable allergy to penicillin; however, she had tolerated cephalosporin without any reaction. The patient has a 6-weeks' old baby and she is still nursing. PHYSICAL EXAMINATION There are no changes in her physical exam. IMPRESSION: 1. Residual left renal calculi. 2. Status post placement of left ureteral stent. 3. The plan is for shock-wave lithotripsy of the left renal calculi, followed by cystoscopy and removal of the left ureteral stent. I discussed the above plans in detail with the patient. All her questions were answered. [id number]/[facility] #: [id number] [place]
[~2017-11-17 06:28] MED LIST changes: -Chloroprocaine 2%* 20 ML VIAL ONE; +Famotidine IV* 10 MG/ML 2 ML (20 mg) IV ONE; -HYDROcodone/ACETAMIN 5-325 MG* 1 TAB PO PRN; -Iohexol 180 (CONTRAST) 10 ML SDV IV ONE; +Midazolam* 1 MG/ML 5 ML VIAL (5 MG) ONE; -Ondansetron INJ* 2 MG/ML VIAL IV PRN; -Ondansetron ODT TAB* 4 MG PO PRN; -PROCHLORPERAZINE INJ 5 MG/ML 2 ML VIAL IV PRN; -cefTRIAXone(*) 1 GM ADVAN/BAG ONE; +cefTRIAXone(*) 2 GM ADDV.VIAL IVPB ONE
[2017-11-17 09:37] VITALS: BP 103/69
--- NOTE | 2017-11-18 00:39 | OP ---
DATE OF OPERATION: 11/17/17 - [facility] DATE OF : 84 SURGEON: Chris Prado MD ANESTHESIOLOGIST: Dr. Babrour. ANESTHESIA: IV sedation with MAC. PRE-OP DIAGNOSES: 1. Left renal calculi. 2. Status post placement of left ureteral stent. POST-OP DIAGNOSES: 1. Left renal calculi. 2. Status post placement of left ureteral stent. OPERATIVE PROCEDURE: 1. Shockwave lithotripsy of left renal calculi. 2. Cystoscopy and removal of left ureteral stent. INDICATIONS: Mrs. Brennan is a 37-year-old white female who had left ureteral and renal calculi and required a left ureteroscopy laser lithotripsy about 10 days ago. There were residual stone fragments on followup KUB. She is now admitted for the above procedure. PATHOLOGY: Preoperative KUB and fluoroscopy showed a cluster of stones measuring about 8 mm in the lower pole of calyx of the left kidney and fragments about 5 mm in a mid to lower pole calyx of left kidney. The stone fragment noted in an upper pole calyx on KUB 1 week ago was not seen today and it seemed to have dropped in the lower pole calyx adjacent to the other fragments. Cystoscopy showed distal limb of the stent from the left ureteral orifice. DESCRIPTION OF PROCEDURE: The patient was placed on the shockwave lithotripsy table in the supine position. After IV sedation and with anesthesia monitoring , the calculus in the mid to lower pole of calyx of the left kidney was visualized in both the PA and the oblique x-ray views and the position of the generator and of the patient were adjusted to have that stone in the focus of the shock waves. A total of 700 shocks were then delivered at the rate of 60 shocks per minute. There was good fragmentation of that stone. The lower pole calyx calculus was then placed in the focus of the shock waves and additional 800 shocks were then delivered achieving very good fragmentation. At the end of the treatment, both stones seem to have fragmented well. The patient was then placed in the frog-legged position and was prepped and draped for cystoscopy. Cystoscopy was performed. The left ureteral stent was then removed intact. The patient tolerated the procedures well and left the operating room in good condition. [id number]/[facility] #: [id number] [facility]
== END | disposition home or self-care (01) ==
LOC: OR 06:28
PROVIDERS: ATTEND Urology
DX: N20.0 Calculus of kidney (principal)
CPT/HCPCS: 81025; J0696; J2250; J3010